=== PATIENT | male | born 1995 | race Caucasian/White ===

== ENCOUNTER 2020-11-19 17:58 | Emergency (ER) | payer SELFPAY ==
[~2020-11-19] VITALS: Ht 188 cm; Wt 100.0 kg
[~2020-11-19 17:58] MED LIST: METH4TAB81 PO; NORCO10T PO
--- NOTE | 2020-11-19 18:32 | NUR ---
PT escorted over to ER overflow. PT reports suffering with depresion his entire life and last night took sleeping pills in an attempt to end his life. He said if it was not for a man at the truck station, he probably would not be here. When asked if he is still feeling suicidal he responds tearfully," I don't even know, I just..." Pt cries and puts hid head in his hands.
[2020-11-19 18:56] LABS: BASOPHILS # (AUTO) 0.1 X10'3 (0-0.2); BASOPHILS % (AUTO) 1.1 % (0-1); EOSINOPHILS % (AUTO) 0.3 % (0-6); HEMOGLOBIN 15.2 g/dl (14.0-17.9); LYMPHOCYTES # (AUTO) 1.6 X10'3 (1.1-4.8); LYMPHOCYTES % (AUTO) 21.3 % (21-51); MEAN CORPUSCULAR HEMOGLOBIN 28.1 PG (27.0-31.0); MEAN CORPUSCULAR HGB CONC 33.8 g/dL (33.0-36.5); MEAN CORPUSCULAR VOLUME 83.3 FL (78-98); MONOCYTES # (AUTO) 0.6 X10'3 (0-0.9); MONOCYTES % (AUTO) 7.6 % (2-12); NEUTROPHILS # (AUTO) 5.2 X10'3 (1.8-7.7); NEUTROPHILS % (AUTO) 69.7 % (42-75); PLATELET COUNT 293 X10'3 (140-440); RED BLOOD COUNT 5.41 X10'6 (4.70-6.10); RED CELL DISTRIBUTION WIDTH 13.1 % (11.5-14.5); WHITE BLOOD COUNT 7.4 X10'3 (4.5-11.0)
[2020-11-19 19:01] LABS: ALANINE AMINOTRANSFERASE 44 U/L (12-78); ALBUMIN 5.2 G/DL (3.4-5.0); ALBUMIN/GLOBULIN RATIO 1.7 (1.1-1.5); ALKALINE PHOSPHATASE 60 IU/L (46-116); ANION GAP 10 (8-16); ASPARTATE AMINO TRANSFERASE 21 U/L (10-37); BILIRUBIN,TOTAL 0.6 MG/DL (0.1-1.0); BLOOD UREA NITROGEN 10 MG/DL (7-18); BUN/CREATININE RATIO 9.3 (5.4-32.0); CALCIUM 9.8 MG/DL (8.5-10.1); CHLORIDE 104 MMOL/L (99-107); CREATININE 1.07 MG/DL (0.60-1.10); ETHANOL < 0.010 GM/DL (0.0-0.010); GLUCOSE 87 MG/DL (70-104); SODIUM 144 MMOL/L (135-145); TOTAL CARBON DIOXIDE 29.7 MMOL/L (24-32); TOTAL PROTEIN 8.3 G/DL (6.4-8.2); eGFR 83 ML/MIN
[2020-11-19 19:02] LABS: ACETAMINOPHEN < 2.0 UG/ML (10-30)
--- NOTE | 2020-11-19 19:03 | NUR ---
urine, covid swab, and blood collected. PT seen at bedside by PA.
[2020-11-19 19:32] LABS: URINE AMPHETAMINE SCREEN NEGATIVE (Neg); URINE BARBITUATE SCREEN NEGATIVE (Neg); URINE BENZODIAZEPINES SCREEN NEGATIVE (Neg); URINE CANNABINOID SCREEN POSITIVE (Neg); URINE COCAINE SCREEN NEGATIVE (Neg); URINE METHADONE SCREEN NEGATIVE (Neg); URINE OPIATE SCREEN NEGATIVE (Neg); URINE PHENCYCLIDINE SCREEN NEGATIVE (Neg)
--- NOTE | 2020-11-19 19:50 | NUR ---
PACKET FAXED TO [facility]
--- NOTE | 2020-11-19 19:54 | NUR ---
Consulted with Tricia OLIVO, concluded that poison control did not need to be called due to lab values WNL.
[2020-11-19] MEDS ORDERED: LORazepam 1 MG tablet PO ONE (19:55)
--- NOTE | 2020-11-19 20:37 | NUR ---
PT id red in the face and tearful, he says he feels anxious. 1x dose of ativan 1mg PO order obtained and administered.
--- NOTE | 2020-11-19 22:00 | NUR ---
PT seen b y [facility], 5150 [address].
[2020-11-19] MEDS ORDERED: diphenhydrAMINE 25mg capsule PO ONE (22:25)
--- NOTE | 2020-11-19 23:00 | NUR ---
Pt reading a book, requests bible which is given to him
--- NOTE | 2020-11-20 00:58 | NUR ---
Pt sleeping on R side, RR even and unlabored
--- NOTE | 2020-11-20 05:34 | NUR ---
Pt resting on L side, respirations colleen and unlabored.
--- NOTE | 2020-11-20 07:00 | NUR ---
Pt remains sleeping in no apparent distress.
--- NOTE | 2020-11-20 09:00 | NUR ---
Pt remains asleep without signs of distress. Pt did not awake for breakfast.
--- NOTE | 2020-11-20 11:00 | NUR ---
Pt awake and tearful. Pt voices desire to walk outside. Pt informed that would not be happening and he was not happy, but did not escalate. Addendum: 11/20/20 at 1120 by NIEVES Pt provided verbal reassurrance and hot chocolate.
--- NOTE | 2020-11-20 13:00 | NUR ---
Pt called dad who came to visit for a bit and then took the pt's car keys to get some clothes out of his car and he will bring them back later.
[2020-11-20] MEDS ORDERED: hydrOXYzine 25 MG tablet PO ONE (14:20)
--- NOTE | 2020-11-20 14:36 | NUR ---
valencia topete called about patient. told to call back in 30 min to talk to main nurse
--- NOTE | 2020-11-20 15:00 | NUR ---
Pt has been tearful and c/o anxiety. Pt given hydroxyzine per MD order and pt was allowed to watch some television.
--- NOTE | 2020-11-20 17:00 | NUR ---
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 Pt sitting calmly on his bed.
[2020-11-20] MEDS ORDERED: LORazepam 1 MG tablet PO ONE (18:30)
--- NOTE | 2020-11-20 18:43 | NUR ---
Assumed patient care. The patient came to the nurses station. Patient looks angry. He complains of anxiety. Patient exhibits labile behavior and is intrusive. He raises his voice loudly. The patient is given an Ativan 1mg PO. Plan is to transfer to [facility] in [place] early this evening. This sba underwriter will address patients labile behavior with MD.
[2020-11-20] MEDS ORDERED: quetiapine 100mg tablet PO ONE (18:55)
--- NOTE | 2020-11-20 20:01 | NUR ---
Patient will be accepted to [facility] in [facility]. Accepting [employer] is Neha, acceptance time is 1522 hours. 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
[2020-11-20 20:04] VITALS: BP 135/83
[2020-11-20] MEDS ORDERED: quetiapine 100mg tablet PO SCH (21:00)
== END 2020-11-20 20:54 ==
LOC: ER 17:59
DX: R45.851 Suicidal ideations (principal); Z20.822 Contact with and (suspected) exposure to COVID-19; G89.29 Other chronic pain; F32.9 Major depressive disorder, single episode, unspecified; F12.90 Cannabis use, unspecified, uncomplicated; Z79.899 Other long term (current) drug therapy
CPT/HCPCS: 36415; 80053; 80305; 80320; 80329; 84443; 85025; 87426; 99285; Q0163; Q0177